=== PATIENT | male | born 1960 | race Caucasian/White ===

== ENCOUNTER 2017-02-10 15:55 | Inpatient (IN) | payer OTHER ==
[~2017-02-10] VITALS: Ht 182.9 cm; Wt 100.7 kg
[2017-02-10] VITALS (7 sets, daily range): BP systolic 120–132; BP diastolic 80–83
[2017-02-10] MEDS ORDERED: Haloperidol 5mg/ml Inj IM ONE ×3 (16:45→20:15)
[2017-02-10] MEDS ORDERED: DiphenhydrAMINE 50mg/ml Inj ONE (16:49)
[2017-02-10] MEDS ORDERED: LORazepam Inj 2mg/ml 1ml ONE ×2 (16:50→16:51)
[2017-02-10] MEDS ORDERED: DiphenhydrAMINE 50mg/ml Inj IM ONE (17:00)
[2017-02-10] MEDS ORDERED: LORazepam Inj 2mg/ml 1ml IM ONE (17:00)
--- NOTE | 2017-02-10 18:05 | Emergency Room Report ---
History of Present Illness General Chief Complaint: Behavioral Complaint Source: Patient, Medical Record Present Illness HPI Patient presents from rehabilitation/extended care facility with reports of agitation and change in mental status I received a phone call from the signout from the facility patient was aggressive with other members appear to be more confused than usual patient does have significant underlying psychiatric history However is on medication Patient at this time does not answer all questions appropriately Denies any vomiting There was no reports of fevers Allergies: Coded Allergies: No Known Allergies (Unverified , 02/10/17) Patient History Past Medical History: see triage record Pertinent Family History: none Reviewed Nursing Documentation: PMH: Agreed, PSxH: Agreed Nursing Documentation-PMH History Of Psychiatric Problem: Yes - Bipolar; Schizophrenia; ETOH abuse Review of Systems All Other Systems: negative except mentioned in HPI Physical Exam Vital Signs Date Time Temp Pulse Resp B/P (MAP) Pulse Ox O2 Delivery O2 Flow Rate FiO2 02/10/17 15:50 97.5 74 16 120/80 96 Room Air Sp02 EP Interpretation: reviewed, normal General Appearance: mild distress - appears agitated Head: normocephalic, atraumatic Eyes: bilateral eye PERRL, bilateral eye EOMI ENT: normal pharynx, no angioedema Neck: supple Respiratory: chest non-tender, lungs clear Cardiovascular #1: normal peripheral pulses, regular rate, rhythm Gastrointestinal: normal bowel sounds, non tender, soft Genitourinary: no CVA tenderness Musculoskeletal: normal inspection Neurologic: alert, other - Patient appears agitated, rambling thoughts, patient also was somewhat physical and aggressive with staff Skin: normal color, no rash Lymphatic: no adenopathy Medical Decision Making Diagnostic Impression: Primary Impression: Encephalopathy Additional Impression: Acute psychosis ER Course Upon initial arrival patient's appears confused Multiple differentials such as behavioral, psychological metabolic, infectious pathology entertained Patient's ammonia level is mildly elevated this was treated Patient also provided with multiple psychiatric medications As he appears to have acute psychosis Patient requires admission and further inpatient consultation , Labs Test 02/10/17 18:26 White Blood Count 5.5 K/UL (4.8-10.8) Red Blood Count 4.03 M/UL (4.70-6.10) Hemoglobin 12.8 G/DL (14.2-18.0) Hematocrit 40.0 % (42.0-52.0) Mean Corpuscular Volume 99 FL (80-99) Mean Corpuscular Hemoglobin 31.7 PG (27.0-31.0) Mean Corpuscular Hemoglobin Concent 31.9 G/DL (32.0-36.0) Red Cell Distribution Width 13.4 % (11.6-14.8) Platelet Count 210 K/UL (150-450) Mean Platelet Volume 7.1 FL (6.5-10.1) Neutrophils (%) (Auto) 64.3 % (45.0-75.0) Lymphocytes (%) (Auto) 21.4 % (20.0-45.0) Monocytes (%) (Auto) 10.7 % (1.0-10.0) Eosinophils (%) (Auto) 2.2 % (0.0-3.0) Basophils (%) (Auto) 1.4 % (0.0-2.0) Sodium Level 145 MMOL/L (136-145) Potassium Level 4.5 MMOL/L (3.5-5.1) Chloride Level 108 MMOL/L (98-107) Carbon Dioxide Level 32 MMOL/L (21-32) Anion Gap 5 mmol/L (5-15) Blood Urea Nitrogen 22 mg/dL (7-18) Creatinine 1.1 MG/DL (0.55-1.30) Estimat Glomerular Filtration Rate > 60 mL/min (>60) Glucose Level 105 MG/DL (74-106) Calcium Level 7.4 MG/DL (8.5-10.1) Total Bilirubin 0.2 MG/DL (0.2-1.0) Aspartate Amino Transf (AST/SGOT) 12 U/L (15-37) Alanine Aminotransferase (ALT/SGPT) 21 U/L (12-78) Alkaline Phosphatase 103 U/L (46-116) Ammonia 40 umol/L (11-32) Total Protein 6.8 G/DL (6.4-8.2) Albumin 3.3 G/DL (3.4-5.0) Globulin 3.5 g/dL Albumin/Globulin Ratio 0.9 (1.0-2.7) Salicylates Level 1.0 ug/mL (2.8-20) Acetaminophen Level < 2 MCG/ML (10-30) Serum Alcohol 3 mg/dL Last Vital Signs Date Time Temp Pulse Resp B/P (MAP) Pulse Ox O2 Delivery O2 Flow Rate FiO2 02/10/17 15:50 97.5 74 16 120/80 96 Room Air Status: improved Disposition: ADMITTED INPATIENT Condition: Serious Referrals: SAJAN PARMAR (PCP) MAXIME HOUSTON D.O. Feb 10, 2017 18:05
[2017-02-10 18:53] LABS: BASOPHILS % (AUTO) 1.4 % (0.0-2.0); EOSINOPHILS % (AUTO) 2.2 % (0.0-3.0); HEMOGLOBIN 12.8 G/DL (14.2-18.0); LYMPHOCYTES % (AUTO) 21.4 % (20.0-45.0); MEAN CORPUSCULAR VOLUME 99 FL (80-99); MONOCYTES % (AUTO) 10.7 % (1.0-10.0); NEUTROPHILS % (AUTO) 64.3 % (45.0-75.0); PLATELET COUNT 210 K/UL (150-450); RED BLOOD COUNT 4.03 M/UL (4.70-6.10); RED CELL DISTRIBUTION WIDTH 13.4 % (11.6-14.8); WHITE BLOOD COUNT 5.5 K/UL (4.8-10.8)
[2017-02-10 19:10] LABS: ANION GAP 5 mmol/L (5-15); BLOOD UREA NITROGEN 22 mg/dL (7-18); CALCIUM 7.4 MG/DL (8.5-10.1); CARBON DIOXIDE 32 MMOL/L (21-32); CHLORIDE 108 MMOL/L (98-107); CREATININE 1.1 MG/DL (0.55-1.30); POTASSIUM 4.5 MMOL/L (3.5-5.1); SODIUM 145 MMOL/L (136-145)
[2017-02-10 19:19] LABS: ALANINE AMINOTRANSFERASE 21 U/L (12-78); ALBUMIN 3.3 G/DL (3.4-5.0); ALBUMIN/GLOBULIN RATIO 0.9 (1.0-2.7); ALKALINE PHOSPHATASE 103 U/L (46-116); ASPARTATE AMINO TRANSFERASE 12 U/L (15-37); BILIRUBIN,TOTAL 0.2 MG/DL (0.2-1.0)
[2017-02-10 19:35] LABS: AMMONIA 40 umol/L (11-32)
[2017-02-10] MEDS ORDERED: Lactulose 20gm/30ml UDC ORAL ONE (20:00)
[2017-02-10] MEDS ORDERED: QUEtiapine 200mg tab ORAL ONE (20:45)
[2017-02-10] MEDS ORDERED: QUEtiapine 200mg tab ORAL SCH (21:00)
[2017-02-10] MEDS ORDERED: Haloperidol 5mg/ml Inj IM PRN (21:30)
[2017-02-10] MEDS ORDERED: TraZODone 100mg tab ORAL ONE (22:15)
[2017-02-10] MEDS ORDERED: Midazolam 2mg/2ml Inj IVP ONE (22:45)
[2017-02-11] VITALS (47 sets, daily range): BP systolic 118–138; BP diastolic 72–90
[2017-02-11] MEDS ORDERED: DiphenhydrAMINE 50mg/ml Inj IVP ONE
[2017-02-11] MEDS ORDERED: Haloperidol 5mg/ml Inj IM ONE ×3 (01:15→23:15)
[2017-02-11 06:57] LABS: BASOPHILS % (AUTO) 1.2 % (0.0-2.0); EOSINOPHILS % (AUTO) 0.5 % (0.0-3.0); HEMATOCRIT 38.6 % (42.0-52.0); HEMOGLOBIN 12.5 G/DL (14.2-18.0); LYMPHOCYTES % (AUTO) 11.5 % (20.0-45.0); MEAN CORPUSCULAR VOLUME 98 FL (80-99); MONOCYTES % (AUTO) 9.5 % (1.0-10.0); NEUTROPHILS % (AUTO) 77.4 % (45.0-75.0); PLATELET COUNT 220 K/UL (150-450); RED BLOOD COUNT 3.95 M/UL (4.70-6.10); RED CELL DISTRIBUTION WIDTH 12.9 % (11.6-14.8); WHITE BLOOD COUNT 10.7 K/UL (4.8-10.8)
[2017-02-11 07:10] LABS: ALANINE AMINOTRANSFERASE 14 U/L (12-78); ALBUMIN 3.6 G/DL (3.4-5.0); ALKALINE PHOSPHATASE 96 U/L (46-116); ANION GAP 6 mmol/L (5-15); ASPARTATE AMINO TRANSFERASE 22 U/L (15-37); BILIRUBIN,DIRECT < 0.1 MG/DL (0.0-0.3); BILIRUBIN,TOTAL 0.4 MG/DL (0.2-1.0); BLOOD UREA NITROGEN 17 mg/dL (7-18); CALCIUM 7.6 MG/DL (8.5-10.1); CARBON DIOXIDE 29 MMOL/L (21-32); CHLORIDE 106 MMOL/L (98-107); CREATININE 0.9 MG/DL (0.55-1.30); POTASSIUM 3.9 MMOL/L (3.5-5.1); SODIUM 141 MMOL/L (136-145)
[2017-02-11 07:11] LABS: AMMONIA 30 umol/L (11-32)
[2017-02-11] MEDS ORDERED: QUEtiapine 200mg tab ORAL ONE (07:15)
[2017-02-11] MEDS ORDERED: Depakote 500mg tab ORAL ONE (07:15)
[2017-02-11] MEDS ORDERED: DIVALPROEX SOD500 MG PO ×2 (08:19)
[2017-02-11] MEDS ORDERED: SEROQUEL200 MG ORAL (08:19)
[2017-02-11] MEDS ORDERED: TERBINAFINE HC250 MG PO (08:19)
[2017-02-11] MEDS ORDERED: BISACODYL5 MG ORAL (08:19)
[2017-02-11] MEDS ORDERED: LACTULOSE10 GM/155 PO (08:19)
[2017-02-11] MEDS ORDERED: CLOZAPINE200 MG PO (08:19)
[2017-02-11] MEDS ORDERED: LORazepam Inj 2mg/ml 1ml IM ONE ×2 (10:45→22:30)
[2017-02-11] MEDS ORDERED: DiphenhydrAMINE 50mg/ml Inj IM ONE ×2 (10:45→22:30)
--- NOTE | 2017-02-11 15:53 | History and Physical ---
History of Present Illness General Date patient seen: Feb 11, 2017 Time patient seen: 15:53 Reason for Hospitalization: Behavioral Complaint Present Illness HPI 56y/o male with pmh of schizophrenia who presents with AMS and agitation. Pt sent from SNF given AMS and agitation. Pt noted to be agressive w/ other members of staff atr SNF and more confused than usual. Pt denies f/c, n/c, d/c, chest pain, SOB. History limited as pt w/ AMS. Allergies: Coded Allergies: No Known Allergies (Unverified , 02/10/17) Medication History Scheduled Bisacodyl* (Dulcolax*), 5 MG ORAL DAILY, (Reported) Clozapine (Clozapine), 200 MG PO HS, (Reported) Divalproex Sodium (Depakote), 500 MG PO DAILY, (Reported) Divalproex Sodium (Depakote), 1,000 MG PO QHS, (Reported) Risperidone* (Risperdal*), 3 MG ORAL QHS, (Reported) Terbinafine Hcl* (Lamisil*), 250 MG PO DAILY, (Reported) Miscellaneous Medications Lactulose (Lactulose), 30 GM PO, (Reported) Patient History History Provided By: Patient, Medical Record, EMS Healthcare decision maker N Resuscitation status Advanced Directive on File Past Medical/Surgical History Past Medical/Surgical History: (1) Schizophrenia Family History Family History: Patient reports no known family medical history. Social History Social History: (1) lives [facility] Review of Systems ROS Narrative Unable to obtain given AMS Physical Exam Physical Exam Narrative General: alert, cooperative, no distress, appears stated age, confused, agitated Head: normocephalic, without obvious abnormality, atraumatic Eyes: conjunctivae/corneas clear. PERRL, EOM's intact Throat: lips, mucosa, and tongue normal. MMM Neck: supple, symmetrical, trachea midline, and no JVD Lungs: clear to auscultation bilaterally Heart: regular rate and rhythm, S1, S2 normal, no murmur, click, rub or gallop Abdomen: soft, non-tender, non-distended, bowel sounds normal; no masses or organomegaly Extremities: extremities normal, atraumatic, no cyanosis or edema Pulses: 2+ and symmetric Skin: skin color, texture, turgor normal; no rashes or lesions Neurologic: grossly normal, no focal deficits Last 24 Hour Vital Signs Date Time Temp Pulse Resp B/P (MAP) Pulse Ox O2 Delivery O2 Flow Rate FiO2 02/11/17 12:07 82 16 100 Room Air 02/11/17 12:00 80 16 122/78 100 Room Air 02/11/17 11:52 80 16 100 Room Air 02/11/17 11:37 78 16 100 Room Air 02/11/17 11:22 82 16 100 Room Air 02/11/17 11:07 76 16 100 Room Air 02/11/17 10:52 84 16 100 Room Air 02/11/17 10:37 80 16 100 Room Air 02/11/17 10:22 78 16 100 Room Air 02/11/17 10:07 82 16 100 Room Air 02/11/17 09:52 86 16 100 Room Air 02/11/17 09:37 76 16 100 Room Air 02/11/17 09:22 90 16 100 Room Air 02/11/17 09:07 80 16 100 Room Air 02/11/17 09:00 80 16 122/72 100 Room Air 02/11/17 08:52 86 16 100 Room Air 02/11/17 08:37 86 16 100 Room Air 02/11/17 08:22 86 16 100 Room Air 02/11/17 08:07 82 16 98 Room Air 02/11/17 07:52 86 16 98 Room Air 02/11/17 07:37 86 16 98 Room Air 02/11/17 07:22 86 16 98 Room Air 02/11/17 07:07 89 16 98 Room Air 02/11/17 06:52 89 16 97 Room Air 02/11/17 06:52 85 16 124/81 100 Room Air 02/11/17 06:37 89 16 97 Room Air 02/11/17 06:22 89 16 97 Room Air 02/11/17 06:07 89 16 97 Room Air 02/11/17 05:52 89 16 97 Room Air 02/11/17 05:37 89 18 100 Room Air 02/11/17 05:22 89 18 100 Room Air 02/11/17 05:07 89 18 100 Room Air 02/11/17 04:52 89 18 100 Room Air 02/11/17 04:37 85 16 100 Room Air 02/11/17 04:22 97.5 85 16 124/81 100 Room Air 02/11/17 04:22 85 16 100 Room Air 02/11/17 04:07 85 16 100 Room Air 02/11/17 03:52 85 16 100 Room Air 02/11/17 01:30 97.5 80 14 128/82 99 Room Air 02/10/17 23:30 97.3 75 16 125/81 97 Room Air 02/10/17 22:00 97.3 80 18 132/83 98 Room Air 02/10/17 19:15 74 16 96 Room Air 02/10/17 19:00 74 16 96 Room Air 02/10/17 18:45 74 16 96 Room Air 02/10/17 18:30 74 16 96 Room Air 02/10/17 18:15 74 16 96 Room Air Intake and Output 02/10/17 02/11/17 19:00 07:00 Intake Total 0 ml 100 ml Balance 0 ml 100 ml Intake Oral 0 ml 100 ml # Voids 1 Laboratory Tests Test 02/10/17 18:26 02/11/17 06:45 White Blood Count 5.5 K/UL (4.8-10.8) 10.7 K/UL (4.8-10.8) # Red Blood Count 4.03 M/UL (4.70-6.10) L 3.95 M/UL (4.70-6.10) L Hemoglobin 12.8 G/DL (14.2-18.0) L 12.5 G/DL (14.2-18.0) L Hematocrit 40.0 % (42.0-52.0) L 38.6 % (42.0-52.0) L Mean Corpuscular Volume 99 FL (80-99) 98 FL (80-99) Mean Corpuscular Hemoglobin 31.7 PG (27.0-31.0) H 31.7 PG (27.0-31.0) H Mean Corpuscular Hemoglobin Concent 31.9 G/DL (32.0-36.0) L 32.5 G/DL (32.0-36.0) Red Cell Distribution Width 13.4 % (11.6-14.8) 12.9 % (11.6-14.8) Platelet Count 210 K/UL (150-450) 220 K/UL (150-450) Mean Platelet Volume 7.1 FL (6.5-10.1) 6.7 FL (6.5-10.1) Neutrophils (%) (Auto) 64.3 % (45.0-75.0) 77.4 % (45.0-75.0) H Lymphocytes (%) (Auto) 21.4 % (20.0-45.0) 11.5 % (20.0-45.0) L Monocytes (%) (Auto) 10.7 % (1.0-10.0) H 9.5 % (1.0-10.0) Eosinophils (%) (Auto) 2.2 % (0.0-3.0) 0.5 % (0.0-3.0) Basophils (%) (Auto) 1.4 % (0.0-2.0) 1.2 % (0.0-2.0) Sodium Level 145 MMOL/L (136-145) 141 MMOL/L (136-145) Potassium Level 4.5 MMOL/L (3.5-5.1) 3.9 MMOL/L (3.5-5.1) Chloride Level 108 MMOL/L (98-107) H 106 MMOL/L (98-107) Carbon Dioxide Level 32 MMOL/L (21-32) 29 MMOL/L (21-32) Anion Gap 5 mmol/L (5-15) 6 mmol/L (5-15) Blood Urea Nitrogen 22 mg/dL (7-18) H 17 mg/dL (7-18) Creatinine 1.1 MG/DL (0.55-1.30) 0.9 MG/DL (0.55-1.30) Estimat Glomerular Filtration Rate > 60 mL/min (>60) > 60 mL/min (>60) Glucose Level 105 MG/DL (74-106) 86 MG/DL (74-106) Calcium Level 7.4 MG/DL (8.5-10.1) L 7.6 MG/DL (8.5-10.1) L Total Bilirubin 0.2 MG/DL (0.2-1.0) 0.4 MG/DL (0.2-1.0) Aspartate Amino Transf (AST/SGOT) 12 U/L (15-37) L 22 U/L (15-37) Alanine Aminotransferase (ALT/SGPT) 21 U/L (12-78) 14 U/L (12-78) Alkaline Phosphatase 103 U/L (46-116) 96 U/L (46-116) Ammonia 40 umol/L (11-32) H 30 umol/L (11-32) Total Protein 6.8 G/DL (6.4-8.2) 7.2 G/DL (6.4-8.2) Albumin 3.3 G/DL (3.4-5.0) L 3.6 G/DL (3.4-5.0) Globulin 3.5 g/dL Albumin/Globulin Ratio 0.9 (1.0-2.7) L Salicylates Level 1.0 ug/mL (2.8-20) L Acetaminophen Level < 2 MCG/ML (10-30) L Serum Alcohol 3 mg/dL Direct Bilirubin < 0.1 MG/DL (0.0-0.3) Height (Feet): 6 Weight (Pounds): 222 Medications Current Medications Medications (Trade) Dose Ordered Sig/Bernadine Route PRN Reason Start Time Stop Time Status Last Admin Dose Admin Dextrose/Sodium Chloride 1,000 ml @ 75 mls/hr [id number] IV 02/10/17 20:30 02/11/17 20:29 Haloperidol Lactate (Haldol) 5 mg Q6H PRN IM Agitation 02/10/17 21:30 03/12/17 21:29 Lactulose (Cephulac) 30 gm Q8HR ORAL 02/11/17 06:00 03/13/17 05:59 Rifaximin (Xifaxan) 500 mg EVERY 12 HOURS ORAL 02/10/17 21:00 02/17/17 20:59 Assessment/Plan Problem List: (1) Acute encephalopathy ICD Codes: G93.40 - Encephalopathy, unspecified SNOMED: 3889204 (2) Acute psychosis ICD Codes: F23 - Brief psychotic disorder SNOMED: 10094404 (3) Schizophrenia ICD Codes: F20.9 - Schizophrenia, unspecified SNOMED: 73904746 Status: stable Assessment/Plan Admit inpt F/u metabolic workup to r/o reversible causes of encephalopathy Psych consulted Cont psych meds Pain control, supportive care DC planning possible to inpatient psych vs back to SNF once agitation improves FULL CODE D/w RN, SW/CM, psych regarding mgmt and dispo Ozzie Brown M.D. Feb 11, 2017 15:53
[2017-02-11] MEDS: D5 1/2NS 1,000 ML IV SCH ×2 (17:41→21:32)
[2017-02-11] MEDS: Lactulose 20gm/30ml UDC ORAL SCH (21:00)
[2017-02-11] MEDS ORDERED: Haloperidol Decanoate 50mg Inj IM ONE (22:30)
[2017-02-12] MEDS: Lactulose 20gm/30ml UDC ORAL SCH ×5 (06:29→15:25)
[2017-02-12 08:01] VITALS: BP 95/55
[2017-02-12] MEDS ORDERED: QUEtiapine 200mg tab ORAL SCH (09:00)
[2017-02-12] MEDS ORDERED: Depakote 500mg tab ORAL SCH ×3 (09:00→21:00)
[2017-02-12] MEDS ORDERED: Haloperidol Decanoate 50mg Inj IM ONE ×2 (10:15→11:30)
--- NOTE | 2017-02-12 10:24 | Consultation ---
History of Present Illness General Date patient seen: Feb 11, 2017 Chief Complaint: Behavioral Complaint Present Illness HPI 56 yo male with hx of schizophrenia, was bi due to agitation. Dr. Wright called me yesterday around 12pm to discuss this pt with me for the first time. the pt calmed down after I ordered meds. the pt was administered several doses of antipsychotics by er docs however the pt remained agitated. during my eval he was calm and asleep. Allergies: Coded Allergies: No Known Allergies (Unverified , 02/10/17) Medication History Scheduled Bisacodyl* (Dulcolax*), 5 MG ORAL DAILY, (Reported) Clozapine (Clozapine), 200 MG PO HS, (Reported) Divalproex Sodium (Divalproex Sodium), 500 MG PO DAILY, (Reported) Divalproex Sodium (Divalproex Sodium), 500 MG PO HS, (Reported) Quetiapine Fumarate* (Seroquel*), 200 MG ORAL THREE TIMES A DAY, (Reported) Terbinafine Hcl* (Lamisil*), 250 MG PO DAILY, (Reported) Miscellaneous Medications Lactulose (Lactulose), 30 GM PO, (Reported) Patient History Limited by: medical condition History Provided By: Patient, Medical Record, PMD Healthcare decision maker N Resuscitation status Advanced Directive on File Past Medical/Surgical History Past Medical/Surgical History: (1) Acute psychosis (2) Psychosis (3) Encephalopathy Review of Systems Psychiatric: Reports: prior hx, anxiety, emotional problems, hallucinations Physical Exam General Appearance: no apparent distress, lethargic Last 24 Hour Vital Signs Date Time Temp Pulse Resp B/P (MAP) Pulse Ox O2 Delivery O2 Flow Rate FiO2 02/12/17 08:01 97.2 85 20 95/55 97 Room Air 02/11/17 20:00 97.9 90 20 128/90 91 Room Air 02/11/17 16:00 97.7 84 20 128/80 100 02/11/17 14:45 97.5 80 16 136/72 100 Room Air 02/11/17 14:45 80 16 136/72 100 Room Air 02/11/17 13:52 82 16 100 Room Air 02/11/17 13:37 82 16 100 Room Air 02/11/17 13:22 82 16 100 Room Air 02/11/17 13:07 82 16 100 Room Air 02/11/17 12:52 82 16 100 Room Air 02/11/17 12:37 82 16 100 Room Air 02/11/17 12:22 82 16 100 Room Air 02/11/17 12:07 82 16 100 Room Air 02/11/17 12:00 80 16 122/78 100 Room Air 02/11/17 11:52 80 16 100 Room Air 02/11/17 11:37 78 16 100 Room Air 02/11/17 11:22 82 16 100 Room Air 02/11/17 11:07 76 16 100 Room Air 02/11/17 10:52 84 16 100 Room Air 02/11/17 10:37 80 16 100 Room Air 02/11/17 10:22 78 16 100 Room Air Intake and Output 02/11/17 02/12/17 19:00 07:00 Intake Total 75 ml Balance 75 ml IV Total 75 ml # Voids 4 3 Laboratory Tests Test 02/12/17 09:25 Vitamin B12 Level Pending Vitamin D 25-Hydroxy Pending 25-Hydroxy Vitamin D2 Pending 25-Hydroxy Vitamin D3 Pending Folate Pending Thyroid Stimulating Hormone (TSH) Pending Height (Feet): 6 Height (Inches): 0.00 Weight (Pounds): 222 Medications Current Medications Medications (Trade) Dose Ordered Sig/Bernadine Route PRN Reason Start Time Stop Time Status Last Admin Dose Admin Divalproex Sodium (Depakote) 500 mg BEDTIME ORAL 02/12/17 21:00 03/14/17 20:59 Divalproex Sodium (Depakote) 500 mg DAILY ORAL 02/12/17 09:00 03/14/17 08:59 02/12/17 10:06 Haloperidol Lactate (Haldol) 5 mg Q6H PRN IM Agitation 02/10/17 21:30 03/12/17 21:29 02/11/17 21:29 Lactulose (Cephulac) 30 gm Q8HR ORAL 02/11/17 06:00 03/13/17 05:59 02/12/17 06:29 Quetiapine Fumarate (SEROquel) 200 mg THREE TIMES A DAY ORAL 02/12/17 09:00 03/14/17 08:59 02/12/17 10:07 Rifaximin (Xifaxan) 550 mg EVERY 12 HOURS ORAL 02/12/17 09:45 02/17/17 20:59 02/12/17 10:07 Assessment/Plan Status: unchanged Assessment/Plan schizophrenia cynthia willard change seroquel to Franny Summers M.D. Feb 12, 2017 10:24
[2017-02-12] MEDS ORDERED: DiphenhydrAMINE 50mg/ml Inj IM ONE (10:30)
[2017-02-12] MEDS ORDERED: LORazepam Inj 2mg/ml 1ml IV PRN (10:30)
[2017-02-12] MEDS ORDERED: Haloperidol 5mg/ml Inj IM ONE (10:30)
[2017-02-12 11:53] VITALS: BP 99/67
[2017-02-12 14:10] VITALS: BP 110/71
--- NOTE | 2017-02-12 15:34 | General Progress Note ---
Assessment/Plan Status: stable, progressing Assessment/Plan schizophrenia -haldol dec 100mg given -depakote 1000 qhs -depakote 500mg qam -risperdal 3mg qhs Subjective Date patient seen: Feb 12, 2017 Allergies: Coded Allergies: No Known Allergies (Unverified , 02/10/17) Subjective the pt received Haldol dec and tolerated the medication. the pt is calm and sleep the pt has no behavioral issues Objective Last 24 Hour Vital Signs Date Time Temp Pulse Resp B/P (MAP) Pulse Ox O2 Delivery O2 Flow Rate FiO2 02/12/17 11:53 97.2 92 19 99/67 99 Room Air 02/12/17 08:01 97.2 85 20 95/55 97 Room Air 02/11/17 20:00 97.9 90 20 128/90 91 Room Air 02/11/17 16:00 97.7 84 20 128/80 100 Intake and Output 02/11/17 02/12/17 19:00 07:00 Intake Total 75 ml Balance 75 ml IV Total 75 ml # Voids 4 3 Laboratory Tests 02/12/17 09:25: Vitamin B12 Level 461, Vitamin D 25-Hydroxy [Pending], 25-Hydroxy Vitamin D2 [ Pending], 25-Hydroxy Vitamin D3 [Pending], Folate 17.8, Thyroid Stimulating Hormone (TSH) 1.478 Height (Feet): 6 Height (Inches): 0.00 Weight (Pounds): 222 General Appearance: no apparent distress, thin Neurologic: depressed affect Franny Hoyos M.D. Feb 12, 2017 15:34
[2017-02-12] MEDS ORDERED: RISPERDAL2 MG ORAL (15:59)
[2017-02-12 16:00] VITALS: BP 106/69
[2017-02-12] MEDS ORDERED: DEPAKOTE500 MG PO ×2 (16:00)
--- NOTE | 2017-02-15 13:11 | Discharge Summary ---
Discharge Summary Hospital Course Date of Admission Feb 10, 2017 at 17:38 Date of Discharge Feb 12, 2017 at 17:56 Admitting Diagnosis encephalopathy,acute psychosis Reason for Hospitalization: Acute encephalopathy HPI 56y/o male with pmh of schizophrenia who presents with AMS and agitation. Pt sent from SNF given AMS and agitation. Pt noted to be agressive w/ other members of staff atr SNF and more confused than usual. Pt denies f/c, n/c, d/c, chest pain, SOB. History limited as pt w/ AMS. Consultations Psychiatry Hospital Course Pt was admitted and see by psychiatry. metabolic workup was unremarkable for reversible cause. This likely represents psychosis 2/2 schizophrenia. Psych adjusted pt's medications w/ improvement in agitation. Pt was then d/c'd back to SNF. Discharge Medications Continued Medications: Bisacodyl* (Dulcolax*) 5 Mg Tablet.dr 5 MG ORAL DAILY, #10 TAB 0 Refills Clozapine (Clozapine) 200 Mg Tablet 200 MG PO HS, TAB Divalproex Sodium (Depakote) 500 Mg Tablet.dr 500 MG PO DAILY, TAB Divalproex Sodium (Depakote) 500 Mg Tablet.dr 1000 MG PO QHS, TAB Lactulose (Lactulose) 10 Gm/15 Ml Solution 30 GM PO Risperidone* (Risperdal*) 2 Mg Tablet 3 MG ORAL QHS, #30 TAB 0 Refills Terbinafine Hcl* (Lamisil*) 250 Mg Tablet 250 MG PO DAILY, TAB Discontinued Medications: Divalproex Sodium (Divalproex Sodium) 500 Mg Tablet.dr 500 MG PO DAILY, TAB Divalproex Sodium (Divalproex Sodium) 500 Mg Tablet.dr 500 MG PO HS, TAB Quetiapine Fumarate* (Seroquel*) 200 Mg Tablet 200 MG ORAL THREE TIMES A DAY, TAB Discharge Condition Upon Discharge: stable Discharge Disposition Patient was discharged to SNF/Subacute Facility(03) Discharge Diagnoses: (1) Acute encephalopathy (2) Acute psychosis (3) Schizophrenia Ozzie Brown M.D. Feb 15, 2017 13:11
--- NOTE | 2017-02-19 13:14 | Diagnostic Imaging Report ---
APPROVED REPORT CPT Code: 84835 Present Symptoms Lower Extremity Pain: BILATERAL LOWER EXTREMITY VENOUS DUPLEX: Imaging reveals a patent deep venous system bilaterally. There is no evidence of thrombus within the femoral, popliteal or tibial segments. The greater saphenous veins are also within normal limits. Doppler indicates normal spontaneous flow within these segments.
--- NOTE | 2017-02-20 10:10 | Discharge Summary ---
Discharge Summary Hospital Course Date of Admission Feb 10, 2017 at 17:38 Date of Discharge Feb 12, 2017 at 17:56 Admitting Diagnosis encephalopathy,acute psychosis HPI Rodolfo Louise is a 56 year old male who was admitted on Feb 10, 2017 at 17: 38 for Encephalopathy,Acute Psychosis Consultations Dr. Franny Hoyos Hospital Course Patient is a 56 y/o male with past medical history of anxiety/depression/ Bipolar DO/ Schizophrenia was brought to ER for aggressive behavior. He was admitted and was seen by psychiatry.Was given haldol. Depakote 1000 qhs, depakote 500mg qam, risperdal 3mg qhs. Meds were adjusted. Patient was stabilized and was sent back to SNF. Diagnosis: 1.Schizophrenia 2. Depression 3. Bipolar DO --I have been assigned to complete a DC summary on this account, I was not involved with the patient's management.--SILVANA Vázquez-- Discharge Discharge Disposition Patient was discharged to SNF/Subacute Facility(03) Discharge Diagnoses: Ivett Solorio NP Feb 20, 2017 10:10
== END 2017-02-12 17:56 | DRG 750 ==
LOC: EDBD 15:55 → EMR 16:28 → 4E 17:38 → EDBEDREQ 17:51 → 4E 02-11 10:01
DX: F20.9 Schizophrenia, unspecified (principal); F31.5 Bipolar disorder, current episode depressed, severe, with psychotic features; Z78.1 Physical restraint status
CPT/HCPCS: 36415; 80048; 80053; 80076; 80329; 82140; 82306; 82607; 82746; 84443; 85025; 87081; 93970; 99285; J2250